=== PATIENT | male | born 1950 | race Caucasian/White ===

== ENCOUNTER 2023-05-19 06:07 | Emergency (ER) | payer MEDICARE, OTHER ==
[~2023-05-19] VITALS: Ht 175.3 cm; Wt 81.6 kg
[2023-05-19 07:21] LABS: APPEARANCE,URINE CLEAR (CLEAR); BILIRUBIN,URINE NEGATIVE (NEGATIVE); BLOOD, URINE 3+ Ery/uL (NEGATIVE); COLOR,URINE YELLOW (YELLOW); KETONES,URINE NEGATIVE (NEGATIVE); LEUKOCYTE ESTERASE ,URINE NEGATIVE (NEGATIVE); NITRITE, URINE NEGATIVE (NEGATIVE); PH,URINE 5.5 (5.0-8.0); PROTEIN,URINE NEGATIVE (NEGATIVE); UGLUCOSE NEGATIVE (NEGATIVE); UROBILINOGEN,URINE 0.2 EU/dL (0.2)
[2023-05-19 07:24] LABS: ADD URINE CULTURE NO; BACTERIA,URINE None seen /HPF (None Seen); SQUAMOUS EPITHELIAL CELL,UR Rare /HPF (None Seen); WBC,URINE 0-2 /HPF (0-3)
[2023-05-19 08:40] VITALS: BP 145/90; TEMP 98; O2SAT 97
== END 2023-05-19 08:41 | disposition home or self-care (01) ==
LOC: ER 06:24
DX: R33.9 Retention of urine, unspecified (principal); R31.9 Hematuria, unspecified; R10.2 Pelvic and perineal pain; I10 Essential (primary) hypertension; Z60.2 Problems related to living alone
CPT/HCPCS: 81001